=== PATIENT | female | born 1990 | race Caucasian/White ===

== ENCOUNTER 2022-12-19 11:51 | Emergency (ER) | payer OTHER, SELFPAY ==
--- NOTE | ~2022-12-19 | XR_ITS ---
EXAMINATION: XR abdomen/kub 1V DATE: 12/19/2022 12:39 INDICATION: Mid abdominal pain. Constipation. TECHNIQUE: A supine view of the abdomen on 2 radiographs was obtained. COMPARISON: None. FINDINGS: There are no dilated loops of bowel. There is a paucity of stool in the colon. Calcificatio ns in the pelvis are likely phleboliths. IMPRESSION: 1. Normal bowel gas pattern. Reviewed, dictated and finalized at location A.
[2022-12-19 11:58] VITALS: BP 117/74; PULSE 68; RESP 18; TEMP 37; O2SAT 98
--- NOTE | 2022-12-19 12:49 | ED.ABDPAIN ---
HPI - Abdominal Pain General Chief Complaint: Abdominal Pain Stated Complaint: abdo cramping / diarrhea Time Seen by Provider: 12/19/22 12:00 Source: patient Mode of arrival: ambulatory Limitations: no limitations History of Present Illness HPI narrative: Nelsy is a 32-year-old female patient presenting to the clinic today with complaints of mid to upper abdominal cramping, diarrhea, and bloating. She reports she has also has some nausea. Pain is worse as she is eating. She denies any hematemesis or bloody stools. Reports symptoms when going on for 4 days. Denies any fever or chills. Pain does not radiate. History of IBS-mixed. She has tried gas medicine to try to help with the bloating. Denies any urinary symptoms. Does state there is a chance that she may be . Rates pain 4-10. Related Data Home Medications Medication Instructions Recorded Confirmed No Home Medications 12/19/22 12/19/22 Allergies Allergy/AdvReac Type Severity Reaction Status Date / Time No Known Allergies Allergy Verified 12/19/22 12:08 Review of Systems Review of Systems: Pertinent positives per HPI. Patient denies any fever, chills, rash, headache, visual changes, dizziness, cough, runny nose, sore throat, shortness of breath, chest pain, palpitations, vomiting,or any urinary issues. PMFSH Comments At the time of my signature, I reviewed and agree with the nursing past medical, surgical, social, and family history. There is no relevant family history pertinent to the patient complaint. Exam Narrative: General: Well-developed, well nourished, in no apparent distress. Head: Normocephalic, atraumatic. Cardio: Regular rate and rhythm, s1 and s2 normal, no murmur appreciated. Resp: Clear to auscultation bilaterally, no rhonchi, rales, wheezing or rubs. Abdomen: Soft, pliable, mildly distended, bowel sounds present in all quadrants, tender to palpation over the epigastric and mid abdominal area, no organomegly, no CVAT tenderness. Course Course Emergency Course: Portions of this record may have been created with voice recognition software. Level of Care: Express Care Visit Vital Signs Vital signs: Vital Signs Temperature 37.0 C 12/19/22 11:58 Pulse Rate 68 12/19/22 11:58 Respiratory Rate 18 12/19/22 11:58 Blood Pressure 117/74 12/19/22 11:58 Pulse Oximetry 98 12/19/22 11:58 Oxygen Delivery Room Air 12/19/22 11:58 Temperature 37.0 C 12/19/22 11:58 Pulse Rate 68 12/19/22 11:58 Respiratory Rate 18 12/19/22 11:58 Blood Pressure 117/74 12/19/22 11:58 Pulse Oximetry 98 12/19/22 11:58 Oxygen Delivery Room Air 12/19/22 11:58 Vital signs reviewed MDM - Abdominal Pain MDM Narrative Medical decision making narrative: At the time of visit patient is resting comfortably on the exam table. Currently rates her pain a 4 out of 10. UA preg test was negative in the clinic today. KUB x-ray was performed and shows normal gas pattern. Offer to send patient to the ED for further evaluation although I feel she may have IBS flare or gastroenteritis. Patient declined going to the emergency room at this time and would like to go home and try symptomatic treatment. Supportive measures were discussed with the patient she voiced understanding discharge instructions agrees to treatment plan. Differential Diagnosis Differential diagnosis: Likely abdominal pain, calculus of kidney, constipation, diverticulitis, gastroenteritis, small bowel obstruction and other (IBS flare) Lab Data Labs: UCG Bedside Result Negative Reference Range: Negative Imaging Data Radiologist's impression: ITS Impressions Abdomen X-Ray 12/19/22 12:42 IMPRESSION: 1. Normal bowel gas pattern. Discharge Plan Discharge Clinical Impression: Gastroenteritis, Abdominal pain, Abdominal bloating Patient Disposition: Home,
== END 2022-12-19 12:59 | disposition home or self-care (01) ==
PROVIDERS: Emergency Provider Nurse Practitioner Family
DX: K52.9 Noninfective gastroenteritis and colitis, unspecified (principal); R10.13 Epigastric pain; R14.0 Abdominal distension (gaseous); J45.909 Unspecified asthma, uncomplicated
CPT/HCPCS: 74018; 81025; 99213; G0463